=== PATIENT | male | born 1990 | race Asian ===

== ENCOUNTER 2022-11-27 15:47 | Emergency (ER) | payer MEDICAID ==
[~2022-11-27] VITALS: Ht 170.2 cm; Wt 62.0 kg
[2022-11-27 16:00] VITALS: BP 107/68
[2022-11-27] MEDS ORDERED: IBUPROFEN 600MG TABLET PO ONE (19:30)
[2022-11-27 22:07] LABS: CLARITY URINE CLEAR (CLEAR); COLOR URINE YELLOW (YELLOW); KETONES URINE NEGATIVE (NEGATIVE); LEUKOCYTE ESTERASE URINE NEGATIVE (NEGATIVE); NITRITE URINE NEGATIVE (NEGATIVE); OCCULT BLOOD URINE NEGATIVE (NEGATIVE); PROTEIN URINE NEGATIVE (NEGATIVE); SPECIFIC GRAVITY URINE 1.024 (1.005-1.030); UROBILINOGEN URINE 0.2 E.U./dL (0.2-1.0)
[2022-11-27 23:37] LABS: BASOPHILS % 0.5 % (0.0-2.0); EOSINOPHILS % 2.6 % (0.0-5.0); HEMATOCRIT. 41.5 % (42.0-52.0); HEMOGLOBIN. 14.2 g/dL (14.0-18.0); LYMPHOCYTES % 43.5 % (20.0-50.0); MEAN CORPUSCULAR VOLUME 93.2 fL (80.0-94.0); MEAN PLATELET VOLUME 8.1 fl (7.4-10.4); MONOCYTES % 9.2 % (2.0-8.0); NEUTROPHILS % 44.2 % (40.0-76.0); PLATELET 193 x1000/uL (130-400); RED BLOOD CELL COUNT 4.46 mill/uL (4.7-6.1); RED CELL DISTRIBUTION WIDTH 12.1 % (11.6-14.6)
[2022-11-27 23:42] LABS: CHLORIDE 105 mEq/L (98-107)
[2022-11-27] MEDS ORDERED: IBUPROFEN 600MG TABLET PO NR (23:45)
[2022-11-28] MEDS ORDERED: DOXYCYCLINE HYCLATE 100MG CAPSULE PO ONE (00:30)
[2022-11-28] MEDS ORDERED: CEFTRIAXONE SODIUM 500 MG/VIAL IM ONE (00:30)
[2022-11-28] MEDS ORDERED: DOXY-326 MT (00:42)
[2022-12-02 04:07] LABS: NEISSERIA GONORRHOEAE NAA Negative (Negative)
== END 2022-11-28 01:23 | disposition home or self-care (01) ==
LOC: ER 15:47
DX: N48.89 Other specified disorders of penis (principal)
CPT/HCPCS: 36415; 80053; 81003; 83605; 83690; 85025; 87491; 87591; 96372; 99283; J0696; Z7610